=== PATIENT | male | born 1940 | race Caucasian/White ===

== ENCOUNTER → 2016-08-28 | Outpatient (REF) | payer OTHER ==
[~2016-08-28] MED LIST: *GLUCOMETE; /ESOM40CA; /GLYB5TA; /SUCR1TA; /WARF5TA; ALCOHOL TOP; ATEN50TA2; ATEN50TA2 PO; ATENOLOL50 PO; BACTRIMDS PO; CARAFATE1 PO; COLA100C2; DARVOCET-N PO; DIABETA5 PO; DOXYCYC100 PO; DRIS50002 PO; FE T325T PO; FERR325T; FERREX PO; FERROUS325 PO; FINA5TAB2 PO; FOLI1TAB; FOLI1TAB2 PO; GLUC500T; GLUC850T; GLUCCOSEAC TOPICAL; GLUCOPH850 PO; GLUCOPXR5; GLUCOPXR5 PO; GLUCOSE TEST; GLYB1TAB29 PO; GLYBPOW; GLYBURIDE5 PO; HYDR12.55 PO; HYDR25TA6; INSULADS SUBQ; JANU100T PO; LANCMIS; LASI20TA PO; LISI10TA4; LISI10TA4 PO; LISINOPR10 PO; LISINOPR20 PO; METF500T PO; METFORM500 PO; METO10TA2; MONOPRIL10 PO; MOTRIN800 PO; NEXIUM40 PO; NIFEREX; NIFEREX PO; NITR0.4S; PRIL20CA; PRIL40CA; PRIL40CA PO; PRILOSEC40 PO; REGLAN10 PO; SIMV40TA2; SIMV40TA2 PO; TRAV0.006 OU; TRAVOPROST; TRICOR145 PO; UROXATRAL PO; VITA100027; VITA100072 PO; XALATAN; ZOCOR40 PO; [UNRECOGNIZED DRUG - CODE] PO; [UNRECOGNIZED DRUG - OTHER]; travatan OU
[2016-08-28 13:37] LABS: ALBUMIN 2.7 GM/DL (3.2-5.2); ALBUMIN/GLOBULIN RATIO 0.87 (1.00-1.93); ALKALINE PHOSPHATASE 108 U/L (45-117); ALT/SGPT 26 U/L (12-78); ANION GAP 5 MEQ/L (8-16); AST/SGOT 28 U/L (15-37); BILIRUBIN,TOTAL 0.7 MG/DL (0.2-1.0); BLOOD UREA NITROGEN 34 MG/DL (7-18); CARBON DIOXIDE LEVEL 26 MEQ/L (21-32); CHLORIDE LEVEL 113 MEQ/L (98-107); CHOLESTEROL LEVEL 122 MG/DL (<200); CREATININE FOR GFR 1.43 MG/DL (0.70-1.30); GLOMERULAR FILTRATION RATE 51.3 (>42); GLUCOSE, FASTING 127 MG/DL (83-110); POTASSIUM SERUM 4.9 MEQ/L (3.5-5.1); SODIUM LEVEL 144 MEQ/L (136-145); TOTAL PROTEIN 5.8 GM/DL (6.4-8.2); TRIGLYCERIDES LEVEL 81 MG/DL (<150)
[2016-08-28 14:08] LABS: BASO % 0.5 % (0.0-1.0); EOS # 0.1 K/mm3 (0.0-0.50); EOS % 2.7 % (0.0-3.0); LARGE UNSTAINED CELL # 0.1 K/mm3 (0.0-0.4); LARGE UNSTAINED CELL % 1.7 % (0.0-4.0); LYMPH # 0.8 K/mm3 (1.5-4.5); LYMPH % 20.8 % (24.0-44.0); MEAN CORPUSCULAR HEMOGLOBIN 31.5 pg (27.0-33.0); MEAN CORPUSCULAR HGB CONC 31.5 g/dl (32.0-36.5); MONO # 0.3 K/mm3 (0.0-0.8); MONO % 6.3 % (0.0-5.0); NEUTROPHILS # 2.7 K/mm3 (1.8-7.7); RED CELL DISTRIBUTION WIDTH 14.4 % (11.5-14.5)
[2016-08-28 14:14] LABS: ADD MORPHOLOGY? NO; PLATELET COUNT, AUTOMATED 50 k/mm3 (150-450)
[2016-09-01 12:57] LABS: ALBUMIN 2.95 GM/DL (3.29-5.55); ALBUMIN % 50.8 % (55.8-66.1); GAMMA GLOBULIN % 21.1 % (11.1-18.8)
== END ==
LOC: M SFHCPLAZ 11:00
PROVIDERS: ATTEND Family Medicine
DX: E53.8 Deficiency of other specified B group vitamins (principal); I50.30 Unspecified diastolic (congestive) heart failure; E11.9 Type 2 diabetes mellitus without complications; N40.1 Benign prostatic hyperplasia with lower urinary tract symptoms
CPT/HCPCS: 36415; 80053; 80061; 83036; 84165; 85025; G0103

== ENCOUNTER 2016-09-22 03:07 | Emergency (ER) | payer OTHER ==
[~2016-09-22] VITALS: Ht 167.6 cm; Wt 93.0 kg
[2016-09-22] MEDS ORDERED: METF-414 PO (03:25)
--- NOTE | 2016-09-22 05:50 | REPUSA ---
CLINICAL HISTORY: Edema. COMMENTS: Real time sonography with duplex doppler of the left lower extremity was performed with attention to the major deep venous structures. Evaluation reveals the left common femoral, superficial femoral and popliteal veins to be completely compressible without intraluminal thrombus. There is normal spontaneous phasic flow and augmentation. The greater saphenous/common femoral vein junction is patent. IMPRESSION: No evidence of DVT in left lower extremity. Thank you for your kind referral of this patient.
[2016-09-22 06:50] VITALS: BP 152/66
== END 2016-09-22 07:13 | disposition home or self-care (01) ==
LOC: M ED 04:13
DX: M79.652 Pain in left thigh (principal); Z86.718 Personal history of other venous thrombosis and embolism; Z79.899 Other long term (current) drug therapy; Z79.84 Long term (current) use of oral hypoglycemic drugs; Z79.4 Long term (current) use of insulin

== ENCOUNTER 2016-12-04 09:53 | Inpatient (IN) | payer OTHER, MEDICARE ==
[~2016-12-04] VITALS: Ht 167.6 cm; Wt 93.8 kg
[~2016-12-04 09:53] MED LIST changes: -FOLI1TAB2 PO; +FOLI1TAB4 PO; +METF-414 PO; -METF500T PO; +METF500T13 PO
[2016-12-04] MEDS ORDERED: ALPH0.156 OU (10:07)
[2016-12-04 10:47] LABS: DIFF SLIDE NUMBER 169; MEAN CORPUSCULAR HEMOGLOBIN 30.9 pg (27.0-33.0); MEAN CORPUSCULAR HGB CONC 31.6 g/dl (32.0-36.5); MEAN CORPUSCULAR VOLUME 97.7 fl (80.0-96.0); PLATELET COUNT, AUTOMATED 53 k/mm3 (150-450); RED CELL DISTRIBUTION WIDTH 14.3 % (11.5-14.5); WHITE BLOOD COUNT 4.2 K/mm3 (4.0-10.0)
[2016-12-04 10:48] LABS: ADD MANUAL DIFFER NO; ADD MORPHOLOGY? NO; BASO % 0.4 % (0.0-1.0); EOS # 0.1 K/mm3 (0.0-0.50); EOS % 1.6 % (0.0-3.0); LARGE UNSTAINED CELL # 0.1 K/mm3 (0.0-0.4); LARGE UNSTAINED CELL % 1.3 % (0.0-4.0); LYMPH # 0.7 K/mm3 (1.5-4.5); LYMPH % 17.1 % (24.0-44.0); MONO # 0.3 K/mm3 (0.0-0.8); MONO % 6.6 % (0.0-5.0); NEUTROPHILS # 3.1 K/mm3 (1.8-7.7)
[2016-12-04 10:49] LABS: INR 1.2
[2016-12-04 11:29] LABS: ALBUMIN 2.3 GM/DL (3.2-5.2); ALBUMIN/GLOBULIN RATIO 0.64 (1.00-1.93); ALKALINE PHOSPHATASE 159 U/L (45-117); ALT/SGPT 21 U/L (12-78); ANION GAP 6 MEQ/L (8-16); AST/SGOT 22 U/L (15-37); BILIRUBIN,DIRECT 0.2 MG/DL (0.0-0.2); BILIRUBIN,TOTAL 0.7 MG/DL (0.2-1.0); BLOOD UREA NITROGEN 33 MG/DL (7-18); CALCIUM LEVEL 8.4 MG/DL (8.8-10.2); CARBON DIOXIDE LEVEL 29 MEQ/L (21-32); CHLORIDE LEVEL 108 MEQ/L (98-107); CREATININE FOR GFR 1.33 MG/DL (0.70-1.30); GLOMERULAR FILTRATION RATE 55.8 (>42); GLUCOSE, FASTING 142 MG/DL (83-110); SODIUM LEVEL 143 MEQ/L (136-145); TOTAL PROTEIN 5.9 GM/DL (6.4-8.2)
[2016-12-04] MEDS ORDERED: IPRATROPIUM 0.5MG/ALBUTEROL 2.5MG INH SOL UD 3ML (DUONEB)(J7620) NEB ONE (11:30)
--- NOTE | 2016-12-04 12:05 | REP ---
PORTABLE CHEST: AP portable view of the chest is performed and compared to prior studies, most recent of which is 07/07/2015. There is cardiomegaly. Chronic fibrotic changes are seen in each lung base with no acute infiltrate. There is calcification of the thoracic aorta. The mediastinal silhouette is unchanged. Multiple sternal wires and mediastinal clips are present. IMPRESSION: Cardiomegaly. Stable chronic fibrotic changes with no evidence of acute infiltrate. Signed by Brooks Marie MD 12/04/2016 05:55 P
[2016-12-04] MEDS ORDERED: SIMV40TA2 PO (12:53)
[2016-12-04] MEDS ORDERED: TRAV04OPD OU (12:53)
[2016-12-04] MEDS ORDERED: INSULANT SC (12:53)
[2016-12-04] MEDS ORDERED: OMEP40CA2 PO (12:53)
--- NOTE | 2016-12-04 13:00 | REP ---
Bilateral lower extremity Duplex Doppler venous ultrasound: Real time compression and duplex Doppler interrogation of the bilateral lower extremity deep venous system is performed. Bilaterally, the common femoral, superficial femoral and popliteal veins are fully compressible with transducer pressure and demonstrate normal spontaneous and phasic flow, without evidence of deep venous thrombosis. Impression: No evidence of deep venous thrombosis of the bilateral lower extremity femoral popliteal venous system. Signed by Brooks Marie MD 12/04/2016 12:52 P
--- NOTE | 2016-12-04 14:34 | REP ---
CT of the abdomen and pelvis without IV or bowel contrast: Comparison is 02/16/2014. Within the visualized lower lung xavier. There are small bilateral pleural effusions. There is abdominal ascites surrounding the liver and spleen extending inferiorly in the colic gutters bilaterally into the pelvis. The there is a nodular hepatic margin compatible with cirrhosis. This is unchanged. There are surgical clips in the gallbladder fossa, unchanged. The pancreas is unremarkable and unchanged. The spleen is enlarged measuring 15 centimeters cranial caudad. This appears unchanged. The adrenals, kidneys and abdominal aorta are unremarkable. There is no bowel distension or obstruction. Pelvis: The bladder is incompletely distended and cannot be further evaluated. There is ascites. There is no adenopathy. No diverticulosis or diverticulitis. No inflammatory changes or mass. There is degenerative disc disease throughout the lumbar spine. There is a right hip arthroplasty. 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 Impression: Abdominal ascites. Splenomegaly. Findings in the liver compatible with cirrhosis. Cholecystectomy. No bowel distension or obstruction. Small bilateral pleural effusions. Left hip arthroplasty. Signed by Brooks Goss MD 12/04/2016 02:26 P
--- NOTE | 2016-12-04 15:14 | HPEPDOC ---
Medical History and Physical Date of Admission 12/04/16 History and Physical PRIMARY CARE PROVIDER: Dr. Donavan Reynolds ATTENDING: Dr. 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 Patient states she's been having dyspnea on exertion over the past 2-3 days. Also states he's has progressive orthopnea as well as productive cough of green sputum. No chest pain/palpitations. Patient also notices abdominal distention has been progressively getting worse over the past month, as well as increased lower extremity edema. States he was never told that he would need to be on a liver transplant list, and does not follow regularly with a installation technician. PAST MEDICAL HISTORY:As per HPI PAST SURGICAL HISTORY: History of alcohol abuse however quit drinking 3-4 years ago. No tobacco or illicit drug use. SOCIAL HISTORY: H/o alcohol abuse. FAMILY HISTORY: No family history of liver disease. Father with Heart disease. ALLERGIES: Please see below. REVIEW OF SYSTEMS: HEENT: Denies sore throat/headache CARDIOVASCULAR: Denies chest pain/palpitations RESPIRATORY: + shortness of breath/cough GASTROINTESTINAL: denies nausea/vomiting GENITOURINARY: Denies dysuria/urinary urgency. MUSCULOSKELETAL: Denies myalgias/arthralgias NEUROLOGICAL: Denies any focal weakness HOME MEDICATIONS: Please see below. PHYSICAL EXAMINATION: Vitals: (see below) General: No acute distress, laying comfortably in bed. HEENT: Moist mucous membranes. Neck: Mild JVD. No lymphadenopathy Cardiac: RRR, No murmurs Pulm: Coarse crackles bilateral bases. No wheezing, rhonchi. Abd: Abdominal distention and tenderness to palpation with deep palpation. No rebound guarding or rigidity. + BS Ext: 1+ pitting edema bilateral lower extremities. No cyanosis. Distal pulses intact. LABORATORY DATA: See below. IMAGING: CT abd/pelvis 12/04/16 Impression: Abdominal ascites. Splenomegaly. Findings in the liver compatible with cirrhosis. Cholecystectomy. No bowel distension or obstruction. Small bilateral pleural effusions. Left hip arthroplasty. BLE U/S 12/04/16 Impression: No evidence of deep venous thrombosis of the bilateral lower extremity femoral popliteal venous system. CXR 12/04/16 IMPRESSION: Cardiomegaly. Stable chronic fibrotic changes with no evidence of acute infiltrate. MICROBIOLOGY: Please see below. ASSESSMENT/PLAN: 1. Decompensated cirrhosis- no prior hospitalizations for decompensated cirrhosis. He is taking Lasix at home. Has not been following up regularly with a installation technician. Will be placed on Lasix every 4 hours. We'll start spironolactone as well. Paracentesis ordered for tomorrow. Will need gastroenterology follow-up outpatient as well as follow for possible transplant list candidate. 2. Acute diastolic heart failure- likely secondary to the above. We will continue with diuresis. Echo cardio pending and cardiac enzymes ordered. 3. Chronic anemia and thrombocytopenia- likely secondary to the above. Stable. No acute bleeding. No need for transfusion at this time. We will continue to monitor. 4. Chronic kidney disease stage III Baseline creatinine 1.4. Stable. Avoid nephrotoxins. 5. History of DVT/PE/atrial fibrillation- rate controlled. Not on anticoagulation secondary to recurrent GI bleeding. 6. History of hypertension- continue home meds 7. History of CAD- continue home meds 8. History of BPH- continue meds 9. Hyperlipidemia- continue statin 10. Diabetes mellitus - we will hold metformin for now. Continue Levemir. Sliding scale insulin. DVT prophylaxis- heparin subcutaneous Prognosis is guarded. Patient will be signed out to Dr. Mark Anthony martin and will be followed by the family medicine team. Vital Signs Vital Signs Date Time Temp Pulse Resp B/P (MAP) Pulse Ox O2 Delivery O2 Flow Rate FiO2 12/04/16 12:08 86 12/04/16 12:00 146/74 (98) 12/04/16 11:53 99 12/04/16 09:53 97.2 22 Room Air Laboratory Data Labs 24H Laboratory Tests 2 12/04/16 10:26: White Blood Count 4.2, Red Blood Count 3.44L, Hemoglobin 10.6L, Hematocrit 33.6L , Mean Corpuscular Volume 97.7H, Mean Corpuscular Hemoglobin 30.9, Mean Corpuscular Hemoglobin Concent 31.6L, Red Cell Distribution Width 14.3, Platelet Count 53L, Neutrophils (%) (Auto) 73.0H, Lymphocytes (%) (Auto) 17.1L, Monocytes (%) (Auto) 6.6H, Eosinophils (%) (Auto) 1.6, Basophils (%) (Auto) 0.4 , Neutrophils # (Auto) 3.1, Lymphocytes # (Auto) 0.7L, Monocytes # (Auto) 0.3, Eosinophils # (Auto) 0.1, Basophils # (Auto) 0.0, Large Unclassified Cells % 1.3 , Large Unclassified Cells # 0.1, Prothrombin Time 15.4H, Prothromb Time International Ratio 1.20, Anion Gap 6L, Glomerular Filtration Rate 55.8, Calcium Level 8.4L, Aspartate Amino Transf (AST/SGOT) 22, Alanine Aminotransferase (ALT/SGPT) 21, Alkaline Phosphatase 159H, Total Bilirubin 0.7, Direct Bilirubin 0.2, Total Creatine Kinase 55, Creatine Kinase MB 1.3, Creatine Kinase MB Relative Index 2.36, Troponin I < 0.02, B-Type Natriuretic Peptide 171H, Total Protein 5.9L, Albumin 2.3L, Albumin/Globulin Ratio 0.64L, Thyroid Stimulating Hormone (TSH) 2.150 12/04/16 10:35: Lactic Acid Level 1.3 CBC/BMP Laboratory Tests 12/04/16 10:26 Red Blood Count 3.44 L, Mean Corpuscular Volume 97.7 H, Mean Corpuscular Hemoglobin 30.9, Mean Corpuscular Hemoglobin Concent 31.6 L, Red Cell Distribution Width 14.3, Neutrophils (%) (Auto) 73.0 H, Lymphocytes (%) (Auto) 17.1 L, Monocytes (%) (Auto) 6.6 H, Eosinophils (%) (Auto) 1.6, Basophils (%) ( Auto) 0.4, Neutrophils # (Auto) 3.1, Lymphocytes # (Auto) 0.7 L, Monocytes # ( Auto) 0.3, Eosinophils # (Auto) 0.1, Basophils # (Auto) 0.0 Microbiology Microbiology 12/04/16 Blood Culture, Received Pending 12/04/16 Blood Culture, Received Pending Home Medications Scheduled Brimonidine Tartrate 0.15% (Alphagan P) 0.15 % Vivi, 1 DROP OU DAILY Cyanocobalamin (Vitamin B12) 1,000 Mcg Tab, 1,000 MCG PO DAILY Ferrous Sulfate (Fe Tabs) 325 Mg Tab, 325 MG PO BID Finasteride (Finasteride) 5 Mg Tab, 5 MG PO DAILY Folic Acid (Folic Acid) 1 Mg Tab, 1 MG PO DAILY Furosemide (Lasix) 20 Mg Tab, 20 MG PO DAILY Insulin Glargine (Lantus) 1 Units/0.01 Ml Susp, 40 UNITS SC QHS Lisinopril (Lisinopril) 10 Mg Tab, 10 MG PO DAILY Metformin Hydrochloride (Metformin HCl ER) 500 Mg Tab, 500 MG PO DAILY Nadolol (Nadolol) 20 Mg Tab, 20 MG PO DAILY@1800 Omeprazole (Omeprazole) 40 Mg Cap, 40 MG PO BID Simvastatin - High Dose (Simvastatin) 40 Mg Tab, 40 MG PO QHS Spironolactone (Aldactone) 50 Mg Tab, 50 MG PO DAILY Travoprost (Travatan Z) 50 Drop/2.5 Ml Soln, 1 DROP OU QHS Vitamin D (Drisdol) 50,000 Unit Cap, 50,000 UNIT PO Q2WK EVERY OTHER THURSDAY Allergies Coded Allergies: No Known Drug Allergy (Verified Allergy, Unknown, 08/16/12) LUZMA DELA CRUZ MD Dec 04, 2016 15:14
[2016-12-04] MEDS ORDERED: FUROSEMIDE 40 MG/4 ML VIAL (J1940) IV ONE (15:15)
--- NOTE | 2016-12-04 16:15 | REP ---
Radionuclide pulmonary ventilation and perfusion scan: Comparisons are the plain film portable chest performed earlier today and chest CT dated 07/07/2015. The study is performed after administration of 1 mCi of technetium 99 labeled DTPA aerosol followed by 5.4 mCi of technetium 99 labeled MAA intravenously. There are no perfusion defects. There are no ventilation defects. There is precipitation radiotracer ventilation phase within the central airways, compatible with COPD. Impression: Low probability of pulmonary embolus. There are findings compatible with COPD. Signed by Brooks Goss MD 12/04/2016 04:06 P
[2016-12-04] MEDS ORDERED: GLUCOSE 4 GM CHEW TABLET PO PRN (18:15)
[2016-12-04] MEDS ORDERED: GLUCAGON FOR INJ 1 MG VIAL (J1610) SC PRN (18:15)
[2016-12-04] MEDS ORDERED: DEXTROSE 50% 50 ML SYRINGE IV PRN (18:15)
[2016-12-04 18:50] VITALS: BP 117/63
--- NOTE | 2016-12-04 19:10 | ECGEPIP ---
Stationary ECG Study [facility] - ED Test Date: 2016-12-04 Pat Name: RACHAEL MOODY Department: Room: - Gender: M Medical Terminologist: olivier : 1940 Requested By: Connie Bryant Order Number: [id number] Reading MD: Mitesh Kerns Measurements Intervals [place] Rate: 68 P: CO: 0 QRS: 5 QRSD: 94 T: 30 QT: 398 QTc: 426 Interpretive Statements ATRIAL FIBRILLATION NONSPECIFIC T-WAVE ABNORMALITY RHYTHM CHANGE COMPARED TO 09/07/13 Electronically Signed On 12-04-2016 19:10:16 EDT by Mitesh Kerns
[2016-12-04 19:48] VITALS: BP 121/58
[2016-12-04] MEDS: LEVEMIR (INSULIN DETEMIR) 1 UNITS/0.01ML SC SCH (21:00)
[2016-12-04] MEDS: HumaLOG INSULIN (NovoLOG) PER UNIT SC SCH (21:00)
[2016-12-04] MEDS: SPIRONOLACTONE 25 MG TAB PO SCH (21:00)
[2016-12-04 21:57] VITALS: BP 106/60
[2016-12-04] MEDS ORDERED: HEPARIN SOD (PORCINE) 5000 UNITS/ML VIAL SC SCH (22:00)
[2016-12-04] MEDS: FUROSEMIDE 40 MG/4 ML VIAL (J1940) IV SCH (22:00)
[2016-12-04] MEDS: SIMVASTATIN 40 MG TAB PO SCH (22:01)
[2016-12-04] MEDS: LATANOPROST 0.005% OPHTH SOLN 2.5 ML OU SCH (22:01)
[2016-12-04] MEDS: OMEPRAZOLE 20 MG CAP PO SCH (22:02)
[2016-12-04 23:36] VITALS: BP 118/56
[2016-12-05] MEDS: FUROSEMIDE 40 MG/4 ML VIAL (J1940) IV SCH ×4 (00:19→12:07)
[2016-12-05 03:55] VITALS: BP 127/60
[2016-12-05 05:21] LABS: MEAN CORPUSCULAR HGB CONC 32.3 g/dl (32.0-36.5); MEAN CORPUSCULAR VOLUME 99.1 fl (80.0-96.0); RED CELL DISTRIBUTION WIDTH 14.1 % (11.5-14.5); WHITE BLOOD COUNT 4.2 K/mm3 (4.0-10.0)
[2016-12-05 05:22] LABS: ALBUMIN 2.1 GM/DL (3.2-5.2); ALBUMIN/GLOBULIN RATIO 0.68 (1.00-1.93); BILIRUBIN,TOTAL 0.7 MG/DL (0.2-1.0); CALCIUM LEVEL 8.2 MG/DL (8.8-10.2); CREATININE FOR GFR 1.67 MG/DL (0.70-1.30); GLOMERULAR FILTRATION RATE 42.9 (>42); MAGNESIUM LEVEL 1.8 MG/DL (1.8-2.4); POTASSIUM SERUM 4.9 MEQ/L (3.5-5.1); TOTAL PROTEIN 5.2 GM/DL (6.4-8.2)
[2016-12-05 08:00] VITALS: BP 153/72
[2016-12-05] MEDS: HumaLOG INSULIN (NovoLOG) PER UNIT SC SCH ×4 (08:49→21:00)
[2016-12-05] MEDS: OMEPRAZOLE 20 MG CAP PO SCH ×2 (08:50→21:38)
[2016-12-05] MEDS: SPIRONOLACTONE 25 MG TAB PO SCH (08:51)
[2016-12-05] MEDS: FINASTERIDE 5 MG TAB PO SCH (08:51)
[2016-12-05] MEDS: CYANOCOBALAMIN 500 MCG TAB PO SCH (08:52)
[2016-12-05] MEDS: FOLIC ACID 1 MG TAB PO SCH (08:52)
[2016-12-05] MEDS: BRIMONIDINE 0.15% OPHTH SOLN 5 ML OU SCH (08:52)
[2016-12-05] MEDS ORDERED: LISINOPRIL 10 MG TAB PO SCH (09:00)
[2016-12-05] MEDS ORDERED: ATENOLOL 50 MG TAB PO SCH (09:00)
[2016-12-05 12:00] VITALS: BP 96/53
--- NOTE | 2016-12-05 14:02 | IPNPDOC ---
Subjective Date Seen The patient was seen on 12/05/16. Subjective Chief Complaint/HPI The patient is a 76-year-old male admitted with a reason for visit of Decompensated Hepatic Cirrhosis. Constitutional: Denies: Fever, Night Sweats Eyes: Denies: Pain ENT: Denies: Head Aches, Dysphagia Skin: Denies: Rash Pulmonary: Denies: Dyspnea, Cough, Pleuritic Chest Pain Cardiovascular: Denies: Chest Pain, Palpitations, Orthopnea Gastrointestinal: Reports: Abdominal Pain (diffuse, non-localizing), Denies: Vomiting Genitourinary: Denies: Dysuria, Frequency Hematologic: Denies: Bruising Endocrine: Denies: Polydipsia, Polyphagia Psych: Reports: Mood Normal Objective Physical Examination General Exam: Positive: Alert, Cooperative Eye Exam: Positive: PERRLA, EOMI, Negative: Sclera icteric Neck Exam: Positive: Supple, Negative: thyromegaly Chest Exam: Positive: Clear to auscultation, Normal air movement, Negative: Rales, Rhonchi, Wheezing Heart Exam: Positive: Rate Normal, Regular Rhythm, Negative: Murmurs Telemetry: Positive: No significant arrhythmia Abdomen Exam: Positive: BS Hypoactive, Tenderness (diffusely tender. abdomen tense. no mass) Skin Exam: Negative: Rash, Breakdown Psych Exam: Positive: Mental status NL Assessment /Plan Problems (1) Ascites Status: Chronic Response to Treatment: Worse Problem Text: due to cirrhosis of liver, thought to be due to alcoholic liver disease and fatty liver.increase in ascites, tender abdomen. on for diagnostic and therapeutic paracentesis today. 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 (2) Diastolic CHF Status: Chronic Response to Treatment: Stable Problem Specific Plan: Monitor Clinically Problem Text: will increase terminal press operator diuretic use from 20 to 40 lasix. stop IV dosing for now. (3) Diabetes mellitus type 2 in obese Status: Chronic Response to Treatment: Stable Problem Specific Plan: Monitor Clinically, Repeat Tests (4) MGUS (monoclonal gammopathy of unknown significance) Status: Chronic Response to Treatment: Stable Problem Specific Plan: Monitor Clinically (5) BPH loc w urin obs/LUTS Status: Acute Response to Treatment: Stable Problem Specific Plan: Monitor Clinically Plan/VTE VTE Prophylaxis Ordered?: Yes Plan Diet: Continue Current (if peritonitis is identified, antibiotic course will be needed. will decide about antibiotic depending on cell count and culture) VS, I&O, 24H, Fishbone Vital Signs/I&O Vital Signs Date Time Temp Pulse Resp B/P (MAP) Pulse Ox O2 Delivery O2 Flow Rate FiO2 12/05/16 09:04 Nasal Cannula 2.0 12/05/16 08:50 153/72 12/05/16 08:50 94 12/05/16 08:00 98.6 18 99 I&O- Last 24 Hours up to 6 AM 12/05/16 06:00 Intake Total 385 ml Output Total 275 ml Balance 110 ml Laboratory Data 24H LABS Laboratory Tests 2 12/04/16 21:03: Bedside Glucose (Misc Panel) 171H 12/05/16 04:47: Anion Gap 6L, Glomerular Filtration Rate 42.9, Blood Urea Nitrogen 33H, Creatinine 1.67H, Sodium Level 145, Potassium Level 4.9#, Chloride Level 108H, Carbon Dioxide Level 31, Calcium Level 8.2L, Aspartate Amino Transf (AST/SGOT) 22, Alanine Aminotransferase (ALT/SGPT) 17, Alkaline Phosphatase 139H, Total Bilirubin 0.7, Total Protein 5.2L, Albumin 2.1L, Magnesium Level 1.8, Albumin/ Globulin Ratio 0.68L 12/05/16 11:21: Bedside Glucose (Misc Panel) 156H CBC/BMP Laboratory Tests 12/05/16 04:47 Red Blood Count 3.08 L, Mean Corpuscular Volume 99.1 H, Mean Corpuscular Hemoglobin 32.0, Mean Corpuscular Hemoglobin Concent 32.3, Red Cell Distribution Width 14.1, Calcium Level 8.2 L, Aspartate Amino Transf (AST/SGOT) 22, Alanine Aminotransferase (ALT/SGPT) 17, Alkaline Phosphatase 139 H, Total Bilirubin 0.7, Total Protein 5.2 L, Albumin 2.1 L Microbiology Microbiology 12/04/16 Blood Culture - Preliminary, Resulted No growth after 24 hours . All specim... 12/04/16 Blood Culture - Preliminary, Resulted No growth after 24 hours . All specim... Hill Hopson MD Dec 05, 2016 14:02
[2016-12-05 15:23] LABS: SPEC. GRAVITY BODY FLUIDS 1.014 (NOT ESTABLISHED)
[2016-12-05 15:31] LABS: RBC ASCITES FLUID 30 (<10mm3 cells/uL); TNC ASCITES FLUID 443 cells/uL (0-20)
[2016-12-05 15:34] LABS: BF DIFF IF INDICATED? YES (NO)
[2016-12-05 15:35] LABS: TOTAL PROTEIN, BODY FLUID 1.3 G/DL (NOT ESTABLISHED)
[2016-12-05 16:00] VITALS: BP 100/54
[2016-12-05 16:13] LABS: CC BF DIFF EXAM CYTOCENTRIFUGE
[2016-12-05 20:00] VITALS: BP 119/57
[2016-12-05] MEDS: LEVEMIR (INSULIN DETEMIR) 1 UNITS/0.01ML SC SCH (21:00)
[2016-12-05] MEDS: SIMVASTATIN 40 MG TAB PO SCH (21:39)
[2016-12-05] MEDS: LATANOPROST 0.005% OPHTH SOLN 2.5 ML OU SCH (21:40)
[2016-12-06] VITALS (7 sets, daily range): BP systolic 74–116; BP diastolic 46–57
[2016-12-06 05:27] LABS: MEAN CORPUSCULAR HEMOGLOBIN 31.3 pg (27.0-33.0); MEAN CORPUSCULAR HGB CONC 32.3 g/dl (32.0-36.5); MEAN CORPUSCULAR VOLUME 96.7 fl (80.0-96.0); WHITE BLOOD COUNT 3.8 K/mm3 (4.0-10.0)
[2016-12-06 05:38] LABS: ALBUMIN/GLOBULIN RATIO 0.67 (1.00-1.93); BILIRUBIN,TOTAL 0.5 MG/DL (0.2-1.0); CALCIUM LEVEL 7.8 MG/DL (8.8-10.2); CREATININE FOR GFR 1.91 MG/DL (0.70-1.30); GLOMERULAR FILTRATION RATE 36.8 (>42); POTASSIUM SERUM 4.6 MEQ/L (3.5-5.1)
[2016-12-06] MEDS: CYANOCOBALAMIN 500 MCG TAB PO SCH (08:34)
[2016-12-06] MEDS: HumaLOG INSULIN (NovoLOG) PER UNIT SC SCH ×4 (08:34→21:00)
[2016-12-06] MEDS: FOLIC ACID 1 MG TAB PO SCH (08:35)
[2016-12-06] MEDS: SPIRONOLACTONE 25 MG TAB PO SCH (08:35)
[2016-12-06] MEDS: FINASTERIDE 5 MG TAB PO SCH (08:35)
[2016-12-06] MEDS: OMEPRAZOLE 20 MG CAP PO SCH ×2 (08:35→21:39)
[2016-12-06] MEDS: BRIMONIDINE 0.15% OPHTH SOLN 5 ML OU SCH (08:35)
[2016-12-06] MEDS ORDERED: FUROSEMIDE 40 MG TAB PO SCH (09:00)
[2016-12-06] MEDS ORDERED: NADOLOL 20MG TABLET PO SCH (09:00)
[2016-12-06] MEDS ORDERED: LISINOPRIL 5 MG TAB PO SCH (09:00)
--- NOTE | 2016-12-06 10:33 | REP ---
REASON: Ascites. Four ultrasonographic images of the abdomen were obtained to assess depth of needle placement to drain ascites. Signed by Mike Norton DO 12/06/2016 10:38 A
[2016-12-06] MEDS: LEVEMIR (INSULIN DETEMIR) 1 UNITS/0.01ML SC SCH (21:00)
[2016-12-06] MEDS: LATANOPROST 0.005% OPHTH SOLN 2.5 ML OU SCH (21:38)
[2016-12-06] MEDS: SIMVASTATIN 40 MG TAB PO SCH (21:39)
[2016-12-07] VITALS (7 sets, daily range): BP systolic 114–148; BP diastolic 57–69
--- NOTE | 2016-12-07 03:26 | IPNPDOC ---
Subjective Date Seen The patient was seen on 12/06/16. Subjective Chief Complaint/HPI The patient is a 76-year-old male admitted with a reason for visit of Decompensated Hepatic Cirrhosis. Events since last encounter Patient had a couple low blood pressures this afternoon. Otherwise feeling pretty well, and hoping to go home soon. Constitutional: Denies: Chills, Fever Skin: Denies: Rash Pulmonary: Denies: Dyspnea, Cough Cardiovascular: Denies: Chest Pain, Palpitations Gastrointestinal: Denies: Nausea, Vomiting, Diarrhea, Constipation Genitourinary: Denies: Dysuria, Frequency Objective Physical Examination General Exam: Positive: Alert, Cooperative Eye Exam: Positive: PERRLA, EOMI, Negative: Sclera icteric Neck Exam: Positive: Supple, Negative: thyromegaly Chest Exam: Positive: Clear to auscultation, Normal air movement, Negative: Rales, Rhonchi, Wheezing Heart Exam: Positive: Rate Normal, Regular Rhythm, Negative: Murmurs Telemetry: Positive: No significant arrhythmia Abdomen Exam: Positive: BS Hypoactive, Tenderness (diffusely tender. abdomen tense. no mass) Skin Exam: Negative: Rash, Breakdown Psych Exam: Positive: Mental status NL Assessment /Plan Problems (1) Ascites Status: Chronic Response to Treatment: Worse Problem Text: 12/06 -- monitor for signs of SBP. Symptomatically much improved after paracentesis. due to cirrhosis of liver, thought to be due to alcoholic liver disease and fatty liver.increase in ascites, tender abdomen. on for diagnostic and therapeutic paracentesis today. 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 (2) Diastolic CHF Status: Chronic Response to Treatment: Stable Problem Specific Plan: Monitor Clinically Problem Text: 12/06 -- Discussed fluid restriction and diuretics. Patient was on target for a net negative today. will increase penitentiary diuretic use from 20 to 40 lasix. stop IV dosing for now. (3) Diabetes mellitus type 2 in obese Status: Chronic Response to Treatment: Stable Problem Specific Plan: Monitor Clinically, Repeat Tests (4) MGUS (monoclonal gammopathy of unknown significance) Status: Chronic Response to Treatment: Stable Problem Specific Plan: Monitor Clinically (5) BPH loc w urin obs/LUTS Status: Acute Response to Treatment: Stable Problem Specific Plan: Monitor Clinically Plan/VTE VTE Prophylaxis Ordered?: Yes Plan Diet: Continue Current (if peritonitis is identified, antibiotic course will be needed. will decide about antibiotic depending on cell count and culture) VS, I&O, 24H, Fishbone Vital Signs/I&O Vital Signs Date Time Temp Pulse Resp B/P (MAP) Pulse Ox O2 Delivery O2 Flow Rate FiO2 12/07/16 00:00 98.2 58 22 118/60 (79) 95 Room Air 12/06/16 04:30 1.0 I&O- Last 24 Hours up to 6 AM 12/07/16 06:00 Intake Total 680 ml Output Total 125 ml Balance 555 ml Laboratory Data 24H LABS Laboratory Tests 2 12/06/16 05:08: Anion Gap 6L, Glomerular Filtration Rate 36.8L, Blood Urea Nitrogen 47H, Creatinine 1.91H, Sodium Level 143, Potassium Level 4.6, Chloride Level 107, Carbon Dioxide Level 30, Calcium Level 7.8L, Aspartate Amino Transf (AST/SGOT) 20, Alanine Aminotransferase (ALT/SGPT) 15, Alkaline Phosphatase 125H, Total Bilirubin 0.5, Total Protein 5.0L, Albumin 2.0L, Magnesium Level 2.0, Albumin/ Globulin Ratio 0.67L 12/06/16 12:13: Bedside Glucose (Misc Panel) 219H 12/06/16 17:19: Bedside Glucose (Misc Panel) 107 12/06/16 21:34: Bedside Glucose (Misc Panel) 239H CBC/BMP Laboratory Tests 12/06/16 05:08 Red Blood Count 2.92 L, Mean Corpuscular Volume 96.7 H, Mean Corpuscular Hemoglobin 31.3, Mean Corpuscular Hemoglobin Concent 32.3, Red Cell Distribution Width 14.0, Calcium Level 7.8 L, Aspartate Amino Transf (AST/SGOT) 20, Alanine Aminotransferase (ALT/SGPT) 15, Alkaline Phosphatase 125 H, Total Bilirubin 0.5, Total Protein 5.0 L, Albumin 2.0 L Microbiology Microbiology 12/04/16 Blood Culture - Preliminary, Resulted No Growth after 48 hours. All Specime... 12/04/16 Blood Culture - Preliminary, Resulted No Growth after 48 hours. All Specime... 12/05/16 Gram Stain - Final, Resulted 7/28/17 Body Fluid Culture, Resulted Pending IVET ESTRADA DO Dec 07, 2016 03:26
[2016-12-07 05:38] LABS: MEAN CORPUSCULAR HEMOGLOBIN 31.1 pg (27.0-33.0); MEAN CORPUSCULAR HGB CONC 32.2 g/dl (32.0-36.5); MEAN CORPUSCULAR VOLUME 96.4 fl (80.0-96.0); RED CELL DISTRIBUTION WIDTH 14.1 % (11.5-14.5)
[2016-12-07 05:54] LABS: ALBUMIN 2.1 GM/DL (3.2-5.2); ALBUMIN/GLOBULIN RATIO 0.66 (1.00-1.93); BILIRUBIN,TOTAL 0.6 MG/DL (0.2-1.0); CALCIUM LEVEL 8.3 MG/DL (8.8-10.2); CREATININE FOR GFR 1.81 MG/DL (0.70-1.30); GLOMERULAR FILTRATION RATE 39.1 (>42); MAGNESIUM LEVEL 2.2 MG/DL (1.8-2.4); POTASSIUM SERUM 5.1 MEQ/L (3.5-5.1); TOTAL PROTEIN 5.3 GM/DL (6.4-8.2)
[2016-12-07] MEDS: BRIMONIDINE 0.15% OPHTH SOLN 5 ML OU SCH (08:40)
[2016-12-07] MEDS: FOLIC ACID 1 MG TAB PO SCH (08:41)
[2016-12-07] MEDS: FINASTERIDE 5 MG TAB PO SCH (08:41)
[2016-12-07] MEDS: OMEPRAZOLE 20 MG CAP PO SCH ×2 (08:41→21:17)
[2016-12-07] MEDS: HumaLOG INSULIN (NovoLOG) PER UNIT SC SCH ×4 (08:41→20:55)
[2016-12-07] MEDS: CYANOCOBALAMIN 500 MCG TAB PO SCH (08:41)
[2016-12-07] MEDS: FUROSEMIDE 20 MG TAB PO SCH (08:41)
[2016-12-07] MEDS: SPIRONOLACTONE 50 MG TAB PO SCH (08:41)
[2016-12-07] MEDS ORDERED: LISINOPRIL *2.5 MG* TAB PO SCH (09:00)
--- NOTE | 2016-12-07 09:46 | ECHO ---
DATE OF PROCEDURE: 12/05/2016 DATE OF : 1940 AGE: 76 REFERRING PROVIDER: Dr. Yasir Harrison PATIENT LOCATION: Room 3217 REASON FOR THE ECHOCARDIOGRAM: Heart failure, unspecified. 2D MEASUREMENTS: IVS: 1.4 cm LV: 4.5 cm LVPW: 1.2 cm LA: 3.9 cm Aorta: 3.7 cm DOPPLER MEASUREMENTS: Peak velocity across the aortic valve: 1.8 m/s Peak velocity across the LVOT: 0.84 m/s Mitral E: 1.3, Mitral A: 0.46 with a ratio of 2.9 2D COMMENTS: 1. Mildly increased left ventricular wall thickness with normal left ventricular size and a normal global left ventricular systolic function. The estimated global left ventricular systolic ejection fraction is 60-65%. 2. Normal left atrium and normal right atrium and right ventricle. 3. The atrial septum appeared to be normal without evidence of defect or shunt. 4. Borderline enlarged aortic root. 5. No pericardial effusion seen. 6. Minimally calcified aortic valve with normal leaflet excursion. Mildly calcified mitral annulus with normal anterior mitral valve leaflet motion. Normal tricuspid valve and pulmonic valve. The proximal pulmonary artery branches appear to be normal in size. 6. The inferior vena cava was mildly enlarged, central venous pressure might be elevated. DOPPLER: It detects trace aortic regurgitation, trace mitral regurgitation and trace to mild tricuspid regurgitation. Assessment of the left ventricular diastolic function appeared to be normal. IMPRESSION: 1. Normal global left ventricular systolic function with mild concentric left ventricular hypertrophy. Left ventricular diastolic function also appears to be normal. 2. Aortic valve sclerosis with trace aortic regurgitation. 3. Mitral annulus calcification with trace mitral regurgitation. 4. Trace to mild tricuspid regurgitation. 5. The inferior vena cava appeared to be enlarged, central venous pressure might be elevated. MTDD
[2016-12-07] MEDS ORDERED: NADOLOL 20MG TABLET PO SCH (18:00)
[2016-12-07] MEDS: LEVEMIR (INSULIN DETEMIR) 1 UNITS/0.01ML SC SCH (21:17)
[2016-12-07] MEDS: LATANOPROST 0.005% OPHTH SOLN 2.5 ML OU SCH (21:18)
[2016-12-07] MEDS: SIMVASTATIN 40 MG TAB PO SCH (21:18)
--- NOTE | 2016-12-07 21:36 | IPNPDOC ---
Subjective Date Seen The patient was seen on 12/07/16. Subjective Chief Complaint/HPI The patient is a 76-year-old male admitted with a reason for visit of Decompensated Hepatic Cirrhosis. Events since last encounter Results of echocardiogram are available. Patient is feeling better, with improved blood pressures. Constitutional: Denies: Chills, Fever Skin: Denies: Rash Pulmonary: Denies: Dyspnea, Cough Cardiovascular: Reports: Edema, Denies: Chest Pain, Orthopnea Gastrointestinal: Denies: Nausea, Vomiting, Diarrhea, Constipation Psych: Reports: Mood Normal Objective Physical Examination General Exam: Positive: Alert, Cooperative Eye Exam: Positive: PERRLA, EOMI, Negative: Sclera icteric Neck Exam: Positive: Supple, Negative: thyromegaly Chest Exam: Positive: Clear to auscultation, Normal air movement, Negative: Rales, Rhonchi, Wheezing Heart Exam: Positive: Rate Normal, Regular Rhythm, Negative: Murmurs Telemetry: Positive: No significant arrhythmia Abdomen Exam: Positive: BS Hypoactive, Negative: Tenderness Skin Exam: Negative: Rash, Breakdown Psych Exam: Positive: Mental status NL Assessment /Plan Problems (1) Ascites Status: Chronic Response to Treatment: Worse Problem Text: 12/07 -- with new adjustments to medication to prevent future ascites, BP is more stable. Ascitic culture is negative. 12/06 -- monitor for signs of SBP. Symptomatically much improved after paracentesis. due to cirrhosis of liver, thought to be due to alcoholic liver disease and fatty liver.increase in ascites, tender abdomen. on for diagnostic and therapeutic paracentesis today. 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 (2) Diastolic CHF Status: Resolved Response to Treatment: Stable Problem Specific Plan: Monitor Clinically Problem Text: 12/07 -- echo not consistent with CHF. Stopped fluid restriction. 12/06 -- Discussed fluid restriction and diuretics. Patient was on target for a net negative today. will increase usp diuretic use from 20 to 40 lasix. stop IV dosing for now. (3) Diabetes mellitus type 2 in obese Status: Chronic Response to Treatment: Stable Problem Specific Plan: Monitor Clinically, Repeat Tests (4) MGUS (monoclonal gammopathy of unknown significance) Status: Chronic Response to Treatment: Stable Problem Specific Plan: Monitor Clinically (5) BPH loc w urin obs/LUTS Status: Acute Response to Treatment: Stable Problem Specific Plan: Monitor Clinically Plan/VTE VTE Prophylaxis Ordered?: Yes Plan Diet: Continue Current (if peritonitis is identified, antibiotic course will be needed. will decide about antibiotic depending on cell count and culture) VS, I&O, 24H, Fishbone Vital Signs/I&O Vital Signs Date Time Temp Pulse Resp B/P (MAP) Pulse Ox O2 Delivery O2 Flow Rate FiO2 12/07/16 17:59 75 130/61 12/07/16 16:30 Room Air 12/07/16 16:09 97.4 20 98 12/06/16 04:30 1.0 I&O- Last 24 Hours up to 6 AM 12/07/16 06:00 Intake Total 755 ml Output Total 425 ml Balance 330 ml Laboratory Data 24H LABS Laboratory Tests 2 12/06/16 21:34: Bedside Glucose (Misc Panel) 239H 12/07/16 05:07: Anion Gap 6L, Glomerular Filtration Rate 39.1L, Blood Urea Nitrogen 51H, Creatinine 1.81H, Sodium Level 146H, Potassium Level 5.1, Chloride Level 109H, Carbon Dioxide Level 31, Calcium Level 8.3L, Aspartate Amino Transf (AST/SGOT) 21, Alanine Aminotransferase (ALT/SGPT) 16, Alkaline Phosphatase 132H, Total Bilirubin 0.6, Total Protein 5.3L, Albumin 2.1L, Magnesium Level 2.2, Albumin/ Globulin Ratio 0.66L 12/07/16 11:29: Bedside Glucose (Misc Panel) 218H 12/07/16 20:38: Bedside Glucose (Misc Panel) 219H CBC/BMP Laboratory Tests 12/07/16 05:07 Red Blood Count 3.19 L, Mean Corpuscular Volume 96.4 H, Mean Corpuscular Hemoglobin 31.1, Mean Corpuscular Hemoglobin Concent 32.2, Red Cell Distribution Width 14.1, Calcium Level 8.3 L, Aspartate Amino Transf (AST/SGOT) 21, Alanine Aminotransferase (ALT/SGPT) 16, Alkaline Phosphatase 132 H, Total Bilirubin 0.6, Total Protein 5.3 L, Albumin 2.1 L Microbiology Microbiology 12/04/16 Blood Culture - Preliminary, Resulted No Growth after 72 hours. All specime... 12/04/16 Blood Culture - Preliminary, Resulted No Growth after 72 hours. All specime... 12/05/16 Gram Stain - Final, Complete 12/05/16 Body Fluid Culture - Final, Complete IVET ESTRADA DO Dec 07, 2016 21:36
[2016-12-08 05:42] LABS: MEAN CORPUSCULAR HEMOGLOBIN 30.5 pg (27.0-33.0); MEAN CORPUSCULAR HGB CONC 32.1 g/dl (32.0-36.5); MEAN CORPUSCULAR VOLUME 95.2 fl (80.0-96.0); RED CELL DISTRIBUTION WIDTH 14.1 % (11.5-14.5); WHITE BLOOD COUNT 4.8 K/mm3 (4.0-10.0)
[2016-12-08 06:00] VITALS: BP 126/58
[2016-12-08 06:09] LABS: ALBUMIN 2.1 GM/DL (3.2-5.2); ALBUMIN/GLOBULIN RATIO 0.66 (1.00-1.93); BILIRUBIN,TOTAL 0.6 MG/DL (0.2-1.0); CREATININE FOR GFR 1.63 MG/DL (0.70-1.30); GLOMERULAR FILTRATION RATE 44.1 (>42); MAGNESIUM LEVEL 2.3 MG/DL (1.8-2.4); POTASSIUM SERUM 5.1 MEQ/L (3.5-5.1); TOTAL PROTEIN 5.3 GM/DL (6.4-8.2)
[2016-12-08] MEDS: HumaLOG INSULIN (NovoLOG) PER UNIT SC SCH (07:30)
[2016-12-08] MEDS: CYANOCOBALAMIN 500 MCG TAB PO SCH (08:45)
[2016-12-08] MEDS: FOLIC ACID 1 MG TAB PO SCH (08:45)
[2016-12-08] MEDS: SPIRONOLACTONE 50 MG TAB PO SCH (08:45)
[2016-12-08] MEDS: OMEPRAZOLE 20 MG CAP PO SCH (08:46)
[2016-12-08] MEDS: FINASTERIDE 5 MG TAB PO SCH (08:46)
[2016-12-08] MEDS: FUROSEMIDE 20 MG TAB PO SCH (08:46)
[2016-12-08] MEDS: BRIMONIDINE 0.15% OPHTH SOLN 5 ML OU SCH (08:48)
[2016-12-08] MEDS ORDERED: NADO20TA PO (10:24)
[2016-12-08] MEDS ORDERED: ALDA50TA2 PO (10:24)
--- NOTE | 2016-12-09 06:38 | DSES ---
DATE OF ADMISSION: 12/04/2016 DATE OF DISCHARGE: 12/08/2016 PRIMARY CARE PROVIDER: Dr. Donavan Reynolds. HISTORY: This is a 76-year-old male patient of Dr. Reynolds, who presented to the [facility] Emergency Room with increasing shortness of breath, progressively worsening over the last several days. He also complained of dyspnea on exertion, orthopnea, productive cough with green sputum production, increased abdominal distention which had worsened over the last month, as well as increased lower extremity edema. He was evaluated in the emergency room and felt to have decompensated cirrhosis and, therefore, he was admitted to the hospital for further management. During his hospitalization, he has remained medically stable. He underwent therapeutic paracentesis. 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 He seems to be tolerating this well. His diuretic therapy has been increased from Lasix 20 mg daily with the addition of spironolactone. He also seems to be tolerating this. His respiratory status is improved. He has been by physical therapy who feel as though he is safe to return home. He has no additional questions. His is at bedside. He has remained afebrile without any leukocytosis. He has chronic kidney disease and his renal function has also remained stable. His international normalized ratio (INR) is 1.2 on admission without anticoagulation. His blood cultures were negative times two. His body fluid culture of the abdominal fluid obtained from paracentesis was also benign. H DISCHARGE DIAGNOSES: 1. Decompensated liver failure with ascites. 2. Chronic diastolic congestive heart failure. 3. Diabetes mellitus type 2. 4. Monoclonal gammopathy of unknown significance. 5. Benign prostatic hypertrophy (BPH) with urinary obstruction. DISCHARGE MEDICATIONS: - vitamin D 50,000 units every other week - Travatan Z one drop each eye before bed - simvastatin 40 mg before bed - omeprazole 40 mg twice daily - metformin 500 mg daily - lisinopril 10 mg daily - Lantus 40 units subcutaneous before bed - Lasix 20 mg daily - folic acid 1 mg daily - finasteride 5 mg daily - ferrous sulfate 325 mg twice daily - vitamin B12 1000 mcg by mouth daily - Alphagan P one drop each eye daily - nadolol 20 mg daily - spironolactone 50 mg daily DISCHARGE PLAN: Followup with Dr. Reynolds in 7-10 days. Activity should be as tolerated. Diet should be consistent carbohydrate, no added salt.
== END 2016-12-08 11:25 | disposition home or self-care (01) | DRG 432 ==
LOC: M ED 09:53 → M ED INP 17:42 → M PCU 18:37 → M MSPAV 12-07 16:00
PROVIDERS: ADMIT Internal Medicine; ATTEND Family Medicine
PROC: 0W9G3ZZ Drainage of Peritoneal Cavity, Percutaneous Approach (ICD-10-PCS; principal; 2016-12-05)
DX: K70.31 Alcoholic cirrhosis of liver with ascites (principal); I50.33 Acute on chronic diastolic (congestive) heart failure; I13.0 Hypertensive heart and chronic kidney disease with heart failure and stage 1 through stage 4 chronic kidney disease, or unspecified chronic kidney disease; R06.00 Dyspnea, unspecified; E11.9 Type 2 diabetes mellitus without complications; I25.10 Atherosclerotic heart disease of native coronary artery without angina pectoris; E78.5 Hyperlipidemia, unspecified; E66.9 Obesity, unspecified; D47.2 Monoclonal gammopathy; F10.10 Alcohol abuse, uncomplicated; D69.6 Thrombocytopenia, unspecified; N40.1 Benign prostatic hyperplasia with lower urinary tract symptoms; K31.819 Angiodysplasia of stomach and duodenum without bleeding; I48.91 Unspecified atrial fibrillation; D63.8 Anemia in other chronic diseases classified elsewhere; N18.3 Chronic kidney disease, stage 3 (moderate); Z86.718 Personal history of other venous thrombosis and embolism; Z79.4 Long term (current) use of insulin; Z79.899 Other long term (current) drug therapy; Z68.35 Body mass index [BMI] 35.0-35.9, adult

== ENCOUNTER → 2016-12-16 | Outpatient (REF) | payer OTHER ==
[~2016-12-16] MED LIST changes: +ALDA50TA2 PO; +ALPH0.156 OU; +BRIM1OPD OU; +FERR1TAB8 PO; +FURO20TA2 PO; +INSULANT SC; +METF-699 PO; +NADO20TA PO; +OMEP40CA2 PO; +SPIR50TA2 PO; +TRAV04OPD OU; +VITA10002 PO
[2016-12-16 20:01] LABS: ADD MORPHOLOGY? YES; BASO # 0.1 K/mm3 (0.0-0.2); EOS # 0.2 K/mm3 (0.0-0.50); EOS % 2.6 % (0.0-3.0); LARGE UNSTAINED CELL # 0.1 K/mm3 (0.0-0.4); LARGE UNSTAINED CELL % 1.9 % (0.0-4.0); LYMPH % 17.2 % (24.0-44.0); MEAN CORPUSCULAR HEMOGLOBIN 29.7 pg (27.0-33.0); MEAN CORPUSCULAR HGB CONC 31.2 g/dl (32.0-36.5); MEAN CORPUSCULAR VOLUME 95.1 fl (80.0-96.0); MONO # 0.4 K/mm3 (0.0-0.8); MONO % 6.6 % (0.0-5.0); NEUTROPHILS # 4.1 K/mm3 (1.8-7.7); NEUTROPHILS % 70.6 % (36.0-66.0); RED CELL DISTRIBUTION WIDTH 14.2 % (11.5-14.5); WHITE BLOOD COUNT 5.9 K/mm3 (4.0-10.0)
[2016-12-16 20:34] LABS: ALBUMIN 2.4 GM/DL (3.2-5.2); CALCIUM LEVEL 8.5 MG/DL (8.8-10.2); CREATININE FOR GFR 1.36 MG/DL (0.70-1.30); GLOMERULAR FILTRATION RATE 54.4 (>42); MAGNESIUM LEVEL 1.9 MG/DL (1.8-2.4); PERCENT SATURATION 16.7 % (19.7-50.0); PHOSPHORUS LEVEL 2.4 MG/DL (2.5-4.9); POTASSIUM SERUM 4.7 MEQ/L (3.5-5.1)
[2016-12-16 22:11] LABS: PLATELET COUNT, AUTOMATED 67 k/mm3 (150-450)
[2016-12-16 22:13] LABS: ANISOCYTOSIS 1+
== END ==
LOC: M SFHCPLAZ 15:24
PROVIDERS: ATTEND Family Medicine
DX: I12.9 Hypertensive chronic kidney disease with stage 1 through stage 4 chronic kidney disease, or unspecified chronic kidney disease (principal); N18.3 Chronic kidney disease, stage 3 (moderate); D50.9 Iron deficiency anemia, unspecified; I50.30 Unspecified diastolic (congestive) heart failure; Z79.891 Long term (current) use of opiate analgesic; Z79.4 Long term (current) use of insulin
CPT/HCPCS: 36415; 80069; 82728; 83550; 83735; 83880; 85025; G0463

== ENCOUNTER → 2017-01-22 | Outpatient (REF) | payer OTHER ==
[2017-01-22 14:08] LABS: BASO % 0.6 % (0.0-1.0); EOS # 0.1 K/mm3 (0.0-0.50); EOS % 2.6 % (0.0-3.0); LARGE UNSTAINED CELL # 0.1 K/mm3 (0.0-0.4); LARGE UNSTAINED CELL % 0.9 % (0.0-4.0); LYMPH # 0.9 K/mm3 (1.5-4.5); MEAN CORPUSCULAR HEMOGLOBIN 29.4 pg (27.0-33.0); MEAN CORPUSCULAR HGB CONC 31.1 g/dl (32.0-36.5); MEAN CORPUSCULAR VOLUME 94.5 fl (80.0-96.0); MONO # 0.4 K/mm3 (0.0-0.8); MONO % 7.4 % (0.0-5.0); NEUTROPHILS # 3.8 K/mm3 (1.8-7.7); NEUTROPHILS % 72.5 % (36.0-66.0); RED CELL DISTRIBUTION WIDTH 14.3 % (11.5-14.5); WHITE BLOOD COUNT 5.2 K/mm3 (4.0-10.0)
[2017-01-22 14:16] LABS: FERRITIN 38 NG/ML (26-388); FREE T4 1.31 NG/DL (0.76-1.46); PERCENT SATURATION 23.8 % (19.7-50.0); TOTAL IRON BINDING CAPACITY 336 UG/DL (250-450)
[2017-01-22 14:32] LABS: PLATELET COUNT, AUTOMATED 75 k/mm3 (150-450)
[2017-01-24 00:08] LABS: FREE KAPPA LIGHT CHAINS SERUM 105.2 mg/L (3.3-19.4); FREE LAMBDA LIGHT CHAINS SERUM 63.5 mg/L (5.7-26.3); KAPPA/LAMBDA RATIO SERUM 1.66 (0.26-1.65)
[2017-01-28 00:06] LABS: FREE KAPPA LIGHT CHAINS URINE 2.11 mg/L (1.35-24.19); FREE LAMBDA LIGHT CHAINS URINE 0.3 mg/L (0.24-6.66)
== END ==
LOC: M SFHCPLAZ 10:54
PROVIDERS: ATTEND Family Medicine
DX: K72.90 Hepatic failure, unspecified without coma (principal); D50.9 Iron deficiency anemia, unspecified; D47.2 Monoclonal gammopathy; E11.9 Type 2 diabetes mellitus without complications; M47.816 Spondylosis without myelopathy or radiculopathy, lumbar region; M16.0 Bilateral primary osteoarthritis of hip; E78.5 Hyperlipidemia, unspecified; I12.9 Hypertensive chronic kidney disease with stage 1 through stage 4 chronic kidney disease, or unspecified chronic kidney disease; N18.3 Chronic kidney disease, stage 3 (moderate); N40.1 Benign prostatic hyperplasia with lower urinary tract symptoms; I50.30 Unspecified diastolic (congestive) heart failure; K21.9 Gastro-esophageal reflux disease without esophagitis; E55.9 Vitamin D deficiency, unspecified; M17.0 Bilateral primary osteoarthritis of knee; E53.8 Deficiency of other specified B group vitamins; Z79.4 Long term (current) use of insulin; Z79.891 Long term (current) use of opiate analgesic; Z79.899 Other long term (current) drug therapy

== ENCOUNTER 2017-02-08 15:10 | Inpatient (IN) | payer OTHER, MEDICARE ==
[~2017-02-08] VITALS: Ht 167.6 cm; Wt 83.3 kg
[~2017-02-08 15:10] MED LIST changes: -BRIM1OPD OU; -FERR1TAB8 PO; -FURO20TA2 PO; -METF-699 PO; -SPIR50TA2 PO; -VITA10002 PO
[2017-02-08] MEDS ORDERED: FUROSEMIDE 40 MG/4 ML VIAL (J1940) IV ONE (16:00)
--- NOTE | 2017-02-08 16:17 | REP ---
Chest two views HISTORY: Shortness of breath Comparison: 12/04/2016 A minimal increase in interstitial markings is present in the lower lobes consistent with chronic interstitial fibrosis. The heart is upper limits of normal in size. The pulmonary vasculature is normal in appearance. T degenerative changes present in the thoracic spine. IMPRESSION: Chronic bibasilar interstitial fibrosis. Signed by Reji Olivares MD 02/08/2017 04:08 P
[2017-02-08 16:28] LABS: BASO % 0.4 % (0.0-1.0); EOS # 0.2 10^3/uL (0.0-0.50); EOS % 2.2 % (0.0-3.0); LYMPH # 0.9 10^3/uL (1.5-4.5); LYMPH % 12.1 % (24.0-44.0); MEAN CORPUSCULAR HEMOGLOBIN 29.2 pg (27.0-33.0); MEAN CORPUSCULAR HGB CONC 30.6 g/dl (32.0-36.5); MEAN CORPUSCULAR VOLUME 95.4 fl (80.0-96.0); MONO # 0.5 10^3/uL (0.0-0.8); MONO % 7.4 % (0.0-5.0); NEUTROPHILS # 5.5 10^3/uL (1.8-7.7); NEUTROPHILS % 76.9 % (36.0-66.0); PLATELET COUNT, AUTOMATED 67 10^3/uL (150-450); RED CELL DISTRIBUTION WIDTH 14.9 % (11.5-14.5); WHITE BLOOD COUNT 7.2 10^3/uL (4.0-10.0)
[2017-02-08 16:37] LABS: INR 1.23
[2017-02-08 16:58] LABS: ALBUMIN 2.5 GM/DL (3.2-5.2); ALBUMIN/GLOBULIN RATIO 0.6 (1.00-1.93); BILIRUBIN,DIRECT 0.5 MG/DL (0.0-0.2); BILIRUBIN,TOTAL 1.2 MG/DL (0.2-1.0); CALCIUM LEVEL 8.5 MG/DL (8.8-10.2); CREATININE FOR GFR 1.47 MG/DL (0.70-1.30); GLOMERULAR FILTRATION RATE 49.7 (>42); POTASSIUM SERUM 4.5 MEQ/L (3.5-5.1); TOTAL PROTEIN 6.7 GM/DL (6.4-8.2)
[2017-02-08] MEDS ORDERED: SPIR50TA2 PO ×2 (17:44→17:53)
[2017-02-08] MEDS ORDERED: NADO20TA PO ×2 (17:44→17:53)
[2017-02-08] MEDS ORDERED: TRAV04OPD OU (17:53)
[2017-02-08] MEDS ORDERED: VITA10002 PO (17:53)
[2017-02-08] MEDS ORDERED: FURO20TA2 PO (17:53)
[2017-02-08] MEDS ORDERED: METF-699 PO (17:53)
[2017-02-08] MEDS ORDERED: BRIM1OPD OU (17:53)
[2017-02-08] MEDS ORDERED: SIMV40TA2 PO (17:53)
[2017-02-08] MEDS ORDERED: FINA5TAB2 PO (17:53)
[2017-02-08] MEDS ORDERED: FOLI1TAB4 PO (17:53)
[2017-02-08] MEDS ORDERED: DRIS50002 PO (17:53)
[2017-02-08] MEDS ORDERED: INSULANT SC (17:53)
[2017-02-08] MEDS ORDERED: OMEP40CA2 PO (17:53)
[2017-02-08] MEDS ORDERED: FERR1TAB8 PO (17:53)
[2017-02-08] MEDS ORDERED: DEXTROSE 50% 50 ML SYRINGE IV PRN (19:00)
[2017-02-08] MEDS ORDERED: GLUCOSE 4 GM CHEW TABLET PO PRN (19:00)
[2017-02-08] MEDS ORDERED: GLUCAGON FOR INJ 1 MG VIAL (J1610) SC PRN (19:00)
[2017-02-08] MEDS ORDERED: metFORMIN XR 500MG TAB *GLUCOPHAGE XR PO ONE (20:00)
[2017-02-08] MEDS: FUROSEMIDE 40 MG/4 ML VIAL (J1940) IV SCH (20:17)
[2017-02-08 21:15] VITALS: BP 164/85
[2017-02-08] MEDS: HumaLOG INSULIN (NovoLOG) PER UNIT SC SCH (21:38)
[2017-02-08] MEDS: DOCUSATE SODIUM 100 MG CAP PO SCH (21:48)
[2017-02-08] MEDS: OMEPRAZOLE 20 MG CAP PO SCH (21:48)
[2017-02-08] MEDS: FERROUS SULFATE 325MG TAB PO SCH (21:48)
[2017-02-08] MEDS: SIMVASTATIN 40 MG TAB PO SCH (21:48)
[2017-02-08] MEDS: LEVEMIR (INSULIN DETEMIR) 1 UNITS/0.01ML SC SCH (21:49)
[2017-02-08] MEDS: LATANOPROST 0.005% OPHTH SOLN 2.5 ML OU SCH (21:49)
[2017-02-08] MEDS: BRIMONIDINE 0.1% OPHTH SOLN 5 ML OU SCH (21:49)
[2017-02-08] MEDS: NADOLOL 20MG TABLET PO SCH (21:49)
[2017-02-09] VITALS (8 sets, daily range): BP systolic 116–146; BP diastolic 58–72
[2017-02-09] MEDS: FUROSEMIDE 40 MG/4 ML VIAL (J1940) IV SCH ×6 (00:23→20:31)
[2017-02-09] MEDS: HumaLOG INSULIN (NovoLOG) PER UNIT SC SCH ×4 (07:30→20:34)
[2017-02-09 07:53] LABS: BASO % 0.1 % (0.0-1.0); EOS % 0.1 % (0.0-3.0); LYMPH # 0.6 10^3/uL (1.5-4.5); LYMPH % 7.2 % (24.0-44.0); MEAN CORPUSCULAR HEMOGLOBIN 29.8 pg (27.0-33.0); MEAN CORPUSCULAR HGB CONC 30.5 g/dl (32.0-36.5); MEAN CORPUSCULAR VOLUME 97.5 fl (80.0-96.0); MONO # 0.6 10^3/uL (0.0-0.8); MONO % 7.5 % (0.0-5.0); NEUTROPHILS # 6.6 10^3/uL (1.8-7.7); NEUTROPHILS % 84.1 % (36.0-66.0); PLATELET COUNT, AUTOMATED 61 10^3/uL (150-450); RED CELL DISTRIBUTION WIDTH 14.8 % (11.5-14.5); WHITE BLOOD COUNT 7.9 10^3/uL (4.0-10.0)
[2017-02-09 08:12] LABS: ALBUMIN 2.3 GM/DL (3.2-5.2); ALBUMIN/GLOBULIN RATIO 0.53 (1.00-1.93); BILIRUBIN,TOTAL 0.9 MG/DL (0.2-1.0); CALCIUM LEVEL 8.4 MG/DL (8.8-10.2); CREATININE FOR GFR 1.7 MG/DL (0.70-1.30); MAGNESIUM LEVEL 1.6 MG/DL (1.8-2.4); POTASSIUM SERUM 4.9 MEQ/L (3.5-5.1); TOTAL PROTEIN 6.6 GM/DL (6.4-8.2)
[2017-02-09 08:25] LABS: ADD MANUAL DIFFER NO; DIFF SLIDE NUMBER 79
[2017-02-09] MEDS: FOLIC ACID 1 MG TAB PO SCH (08:47)
[2017-02-09] MEDS: OMEPRAZOLE 20 MG CAP PO SCH ×2 (08:47→20:34)
[2017-02-09] MEDS: DOCUSATE SODIUM 100 MG CAP PO SCH ×2 (08:47→20:32)
[2017-02-09] MEDS: SPIRONOLACTONE 50 MG TAB PO SCH (08:47)
[2017-02-09] MEDS: CYANOCOBALAMIN 500 MCG TAB PO SCH (08:47)
[2017-02-09] MEDS: FERROUS SULFATE 325MG TAB PO SCH ×2 (08:47→20:33)
[2017-02-09] MEDS: FINASTERIDE 5 MG TAB PO SCH (08:48)
[2017-02-09] MEDS: BRIMONIDINE 0.1% OPHTH SOLN 5 ML OU SCH ×2 (08:48→21:55)
--- NOTE | 2017-02-09 12:03 | IPNPDOC ---
Subjective Date Seen The patient was seen on 02/09/17. Subjective Chief Complaint/HPI The patient is a 76-year-old male admitted with a reason for visit of Ascites, Decompensated Hepatic Cirrhosis. Events since last encounter Pt states he feels a little better today. Still dyspnic. Still with Abd pain. Denies CP. Constitutional: Denies: Chills, Fever Pulmonary: Reports: Dyspnea Cardiovascular: Denies: Chest Pain Gastrointestinal: Reports: Abdominal Pain Objective Physical Examination General Exam: Positive: Alert, No Acute Distress Neck Exam: Positive: Supple, JVD Chest Exam: Positive: Diminished Heart Exam: Positive: Rate Normal, Regular Rhythm Abdomen Exam: Positive: Normal bowel sounds, Tenderness, Other (Distended with ascites) Extremity Exam: Positive: Edema Assessment /Plan Problems (1) Diastolic congestive heart failure Status: Acute Problem Specific Plan: Monitor Clinically, Repeat Labs Problem Text: 02/09 - Acute on chronic diastolic CHF. On Lasix 40 mg IV q4 hrs for net neg. On Spironolactone 50 mg daily. (2) Ascites Status: Acute Problem Specific Plan: Monitor Clinically, Repeat Labs Problem Text: 02/09 - Ascites has reaccumulated. He is being diuresed. He may end up needing a therapeutic tap. Monitor. Will consult his display card writer , Dr. Britton. Discuss with attending. (3) Hepatic cirrhosis Status: Chronic Problem Specific Plan: Monitor Clinically, Repeat Labs Problem Text: See above. (4) Hypoalbuminemia Problem Specific Plan: Monitor Clinically, Repeat Labs Problem Text: 02/09 - Albumin 2.3. Low oncotic pressure from the liver disease causing third spacing. Nutrition consult ordered. (5) DM2 (diabetes mellitus, type 2) Status: Chronic Problem Specific Plan: Monitor Clinically, Repeat Labs Problem Text: On SSI and Levemir. (6) HTN (hypertension) Status: Chronic Problem Specific Plan: Monitor Clinically Problem Text: On Corgard, spironolactone, Lasix. (7) Thrombocytopenia Problem Specific Plan: Monitor Clinically, Repeat Labs Problem Text: 02/09 - Platelets 61. Thrombopenia from liver failure. Monitor closely. (8) Anemia Status: Chronic Problem Specific Plan: Monitor Clinically, Repeat Labs Problem Text: On Iron and Vitamin B12 supplementation. Plan/VTE VTE Prophylaxis Ordered?: Yes (TEDs. Will order SCDs) Plan/Urinary Catheter Reason for insertion/continuin: Critical Pt monitoring VS, I&O, 24H, [facility] Vital Signs/I&O Vital Signs Date Time Temp Pulse Resp B/P (MAP) Pulse Ox O2 Delivery O2 Flow Rate FiO2 02/09/17 08:00 98.1 83 19 117/58 (77) 100 Nasal Cannula 2.0 I&O- Last 24 Hours up to 6 AM 02/10/17 05:59 Intake Total 360 ml Balance 360 ml Laboratory Data 24H LABS Laboratory Tests 2 02/08/17 16:14: Immature Granulocyte % (Auto) 1.0H, White Blood Count 7.2, Red Blood Count 3.91L , Hemoglobin 11.4L, Hematocrit 37.3L, Mean Corpuscular Volume 95.4, Mean Corpuscular Hemoglobin 29.2, Mean Corpuscular Hemoglobin Concent 30.6L, Red Cell Distribution Width 14.9H, Platelet Count 67L, Neutrophils (%) (Auto) 76.9H , Lymphocytes (%) (Auto) 12.1L, Monocytes (%) (Auto) 7.4H, Eosinophils (%) (Auto ) 2.2, Basophils (%) (Auto) 0.4, Neutrophils # (Auto) 5.5, Lymphocytes # (Auto) 0.9L, Monocytes # (Auto) 0.5, Eosinophils # (Auto) 0.2, Basophils # (Auto) 0.0, Immature Granulocyte # (Auto) 0.1H, Nucleated Red Blood Cells % (auto) 0.0, Prothrombin Time 15.7H, Prothromb Time International Ratio 1.23, Activated Partial Thromboplast Time 28.9, Anion Gap 4L, Glomerular Filtration Rate 49.7, Calcium Level 8.5L, Aspartate Amino Transf (AST/SGOT) 27, Alanine Aminotransferase (ALT/SGPT) 21, Alkaline Phosphatase 182H, Total Bilirubin 1.2H , Direct Bilirubin 0.5H, Total Creatine Kinase 45, Creatine Kinase MB 1.5, Creatine Kinase MB Relative Index 3.33, Troponin I 0.02, LQ-Qhb-A-Type Natriuretic Peptide 1442H, Total Protein 6.7, Albumin 2.5L, Albumin/Globulin Ratio 0.60L, Lipase 310 02/08/17 21:29: Bedside Glucose (Misc Panel) 179H 02/09/17 07:42: Immature Granulocyte % (Auto) 1.0H, White Blood Count 7.9, Red Blood Count 3.56L , Hemoglobin 10.6L, Hematocrit 34.7L, Mean Corpuscular Volume 97.5H, Mean Corpuscular Hemoglobin 29.8, Mean Corpuscular Hemoglobin Concent 30.5L, Red Cell Distribution Width 14.8H, Platelet Count 61L, Neutrophils (%) (Auto) 84.1H , Lymphocytes (%) (Auto) 7.2L, Monocytes (%) (Auto) 7.5H, Eosinophils (%) (Auto ) 0.1, Basophils (%) (Auto) 0.1, Neutrophils # (Auto) 6.6, Lymphocytes # (Auto) 0.6L, Monocytes # (Auto) 0.6, Eosinophils # (Auto) 0.0, Basophils # (Auto) 0.0, Immature Granulocyte # (Auto) 0.1H, Nucleated Red Blood Cells % (auto) 0.0, Anion Gap 4L, Glomerular Filtration Rate 42.0, Calcium Level 8.4L, Aspartate Amino Transf (AST/SGOT) 23, Alanine Aminotransferase (ALT/SGPT) 19, Alkaline Phosphatase 163H, Total Bilirubin 0.9, Total Protein 6.6, Albumin 2.3L, Albumin/ Globulin Ratio 0.53L, Blood Urea Nitrogen 41H, Creatinine 1.70H, Sodium Level 144, Potassium Level 4.9, Chloride Level 107, Carbon Dioxide Level 33H, Magnesium Level 1.6L CBC/BMP Laboratory Tests 02/08/17 16:14 Red Blood Count 3.91 L, Mean Corpuscular Volume 95.4, Mean Corpuscular Hemoglobin 29.2, Mean Corpuscular Hemoglobin Concent 30.6 L, Red Cell Distribution Width 14.9 H, Neutrophils (%) (Auto) 76.9 H, Lymphocytes (%) (Auto ) 12.1 L, Monocytes (%) (Auto) 7.4 H, Eosinophils (%) (Auto) 2.2, Basophils (%) (Auto) 0.4, Neutrophils # (Auto) 5.5, Lymphocytes # (Auto) 0.9 L, Monocytes # ( Auto) 0.5, Eosinophils # (Auto) 0.2, Basophils # (Auto) 0.0 02/09/17 07:42 Red Blood Count 3.56 L, Mean Corpuscular Volume 97.5 H, Mean Corpuscular Hemoglobin 29.8, Mean Corpuscular Hemoglobin Concent 30.5 L, Red Cell Distribution Width 14.8 H, Neutrophils (%) (Auto) 84.1 H, Lymphocytes (%) (Auto ) 7.2 L, Monocytes (%) (Auto) 7.5 H, Eosinophils (%) (Auto) 0.1, Basophils (%) ( Auto) 0.1, Neutrophils # (Auto) 6.6, Lymphocytes # (Auto) 0.6 L, Monocytes # ( Auto) 0.6, Eosinophils # (Auto) 0.0, Basophils # (Auto) 0.0, Calcium Level 8.4 L , Aspartate Amino Transf (AST/SGOT) 23, Alanine Aminotransferase (ALT/SGPT) 19, Alkaline Phosphatase 163 H, Total Bilirubin 0.9, Total Protein 6.6, Albumin 2.3 L Vikram Mallory RPA-C Feb 09, 2017 12:03
[2017-02-09] MEDS: NADOLOL 20MG TABLET PO SCH (18:06)
[2017-02-09] MEDS: SIMVASTATIN 40 MG TAB PO SCH (20:34)
[2017-02-09] MEDS: LEVEMIR (INSULIN DETEMIR) 1 UNITS/0.01ML SC SCH (20:35)
[2017-02-09] MEDS: LATANOPROST 0.005% OPHTH SOLN 2.5 ML OU SCH (21:55)
[2017-02-10] MEDS: FUROSEMIDE 40 MG/4 ML VIAL (J1940) IV SCH ×4 (00:15→12:21)
[2017-02-10 03:57] VITALS: BP 120/67
[2017-02-10 06:11] LABS: MEAN CORPUSCULAR HEMOGLOBIN 29.2 pg (27.0-33.0); MEAN CORPUSCULAR HGB CONC 29.6 g/dl (32.0-36.5); MEAN CORPUSCULAR VOLUME 98.7 fl (80.0-96.0); PLATELET COUNT, AUTOMATED 54 10^3/uL (150-450); WHITE BLOOD COUNT 9.9 10^3/uL (4.0-10.0)
[2017-02-10 06:12] LABS: BASO % 0.2 % (0.0-1.0); EOS % 0.2 % (0.0-3.0); IMMATURE GRANULOCYTE % 1.2 % (0-0); LYMPH # 0.8 10^3/uL (1.5-4.5); LYMPH % 8.3 % (24.0-44.0); MONO # 0.8 10^3/uL (0.0-0.8); MONO % 8.1 % (0.0-5.0)
[2017-02-10 06:18] LABS: ALBUMIN 2.4 GM/DL (3.2-5.2); ALBUMIN/GLOBULIN RATIO 0.56 (1.00-1.93); CALCIUM LEVEL 8.6 MG/DL (8.8-10.2); CREATININE FOR GFR 1.91 MG/DL (0.70-1.30); GLOMERULAR FILTRATION RATE 36.8 (>42); POTASSIUM SERUM 4.7 MEQ/L (3.5-5.1); TOTAL PROTEIN 6.7 GM/DL (6.4-8.2)
[2017-02-10 07:30] VITALS: BP 132/64
[2017-02-10] MEDS: HumaLOG INSULIN (NovoLOG) PER UNIT SC SCH ×2 (07:30→12:00)
[2017-02-10] MEDS: SPIRONOLACTONE 50 MG TAB PO SCH (09:00)
[2017-02-10] MEDS: FOLIC ACID 1 MG TAB PO SCH (09:00)
[2017-02-10] MEDS: CYANOCOBALAMIN 500 MCG TAB PO SCH (09:00)
[2017-02-10] MEDS: FERROUS SULFATE 325MG TAB PO SCH (09:00)
[2017-02-10] MEDS: OMEPRAZOLE 20 MG CAP PO SCH (09:00)
[2017-02-10] MEDS: FINASTERIDE 5 MG TAB PO SCH (09:00)
[2017-02-10] MEDS: DOCUSATE SODIUM 100 MG CAP PO SCH ×2 (09:00→20:39)
[2017-02-10] MEDS: BRIMONIDINE 0.1% OPHTH SOLN 5 ML OU SCH ×2 (09:04→20:35)
--- NOTE | 2017-02-10 09:10 | ECGEPIP ---
Stationary ECG Study [facility] - ED Test Date: 2017-02-08 Pat Name: RACHAEL MOODY Department: Room: - Gender: M Associate Sales Representative: araceli : 1940 Requested By: LUIS Hurley Order Number: [id number] Reading MD: Connie Bryant Measurements Intervals [place] Rate: 61 P: [place]: 0 QRS: 8 QRSD: 97 T: 51 QT: 364 QTc: 369 Interpretive Statements ATRIAL FIBRILLATION NONSPECIFIC ST & T-WAVE ABNORMALITY ABNORMAL RHYTHM ECG SIMILAR 12/04/16 Electronically Signed On 02-10-2017 9:10:39 EDT by Connie Bryant
--- NOTE | 2017-02-10 09:36 | IPNPDOC ---
Subjective Date Seen The patient was seen on 02/10/17. Subjective Chief Complaint/HPI The patient is a 76-year-old male admitted with a reason for visit of Ascites, Decompensated Hepatic Cirrhosis. Events since last encounter Pt sleeping. Wakes to voice but falls back asleep quickly. He did deny CP. He nodded that his breathing is better than yesterday. Still with some diffuse abd discomfort. Constitutional: Denies: Chills, Fever Pulmonary: Reports: Dyspnea Cardiovascular: Denies: Chest Pain Gastrointestinal: Reports: Abdominal Pain Objective Physical Examination General Exam: Positive: Alert, No Acute Distress Neck Exam: Positive: Supple, JVD Chest Exam: Positive: Diminished Heart Exam: Positive: Rate Normal, Regular Rhythm Abdomen Exam: Positive: Normal bowel sounds, Tenderness, Other (Distended with ascites) Extremity Exam: Positive: Edema Assessment /Plan Problems (1) Diastolic congestive heart failure Status: Acute Problem Specific Plan: Monitor Clinically, Repeat Labs Problem Text: 02/10 - Acute on chronic diastolic CHF. On Lasix 40 mg IV q4 hrs for net neg. On Spironolactone 50 mg daily. According to computer, down about 1.8L. 02/09 - Acute on chronic diastolic CHF. On Lasix 40 mg IV q4 hrs for net neg. On Spironolactone 50 mg daily. (2) Ascites Status: Acute Problem Specific Plan: Monitor Clinically, Repeat Labs Problem Text: 02/10 - H/O ascites. Had tap in November. Ascites has reaccumulated. Pt may need a therapeutic tap. Dr Britton has been consulted. 02/09 - Ascites has reaccumulated. He is being diuresed. He may end up needing a therapeutic tap. Monitor. Will consult his metallurgical laboratory assistant, Dr. Britton. Discuss with attending. (3) Hepatic cirrhosis Status: Chronic Problem Specific Plan: Monitor Clinically, Repeat Labs Problem Text: See above. (4) Hypoalbuminemia Problem Specific Plan: Monitor Clinically, Repeat Labs Problem Text: 02/10 - Albumin 2.4. 02/09 - Albumin 2.3. Low oncotic pressure from the liver disease causing third spacing. Nutrition consult ordered. (5) DM2 (diabetes mellitus, type 2) Status: Chronic Problem Specific Plan: Monitor Clinically, Repeat Labs Problem Text: On SSI and Levemir. (6) HTN (hypertension) Status: Chronic Problem Specific Plan: Monitor Clinically Problem Text: On Corgard, spironolactone, Lasix. (7) Thrombocytopenia Problem Specific Plan: Monitor Clinically, Repeat Labs Problem Text: 02/09 - Platelets 54. 02/09 - Platelets 61. Thrombopenia from liver failure. Monitor closely. (8) Anemia Status: Chronic Problem Specific Plan: Monitor Clinically, Repeat Labs Problem Text: On Iron and Vitamin B12 supplementation. Plan/VTE VTE Prophylaxis Ordered?: Yes (TEDs and SCDs) Plan/Urinary Catheter Reason for insertion/continuin: Critical Pt monitoring VS, I&O, 24H, Fishbone Vital Signs/I&O Vital Signs Date Time Temp Pulse Resp B/P (MAP) Pulse Ox O2 Delivery O2 Flow Rate FiO2 02/10/17 08:00 Nasal Cannula 2.0 02/10/17 07:30 98.0 83 24 132/64 (86) 98 I&O- Last 24 Hours up to 6 AM 02/11/17 06:00 Output Total 200 ml Balance -200 ml Laboratory Data 24H LABS Laboratory Tests 2 02/09/17 12:10: Bedside Glucose (Misc Panel) 161H 02/09/17 16:52: Bedside Glucose (Misc Panel) 143H 02/09/17 20:14: Bedside Glucose (Misc Panel) 174H 02/10/17 05:05: Immature Granulocyte % (Auto) 1.2H, White Blood Count 9.9, Red Blood Count 3.80L , Hemoglobin 11.1L, Hematocrit 37.5L, Mean Corpuscular Volume 98.7H, Mean Corpuscular Hemoglobin 29.2, Mean Corpuscular Hemoglobin Concent 29.6L, Red Cell Distribution Width 15.0H, Platelet Count 54L, Neutrophils (%) (Auto) 82.0H , Lymphocytes (%) (Auto) 8.3L, Monocytes (%) (Auto) 8.1H, Eosinophils (%) (Auto ) 0.2, Basophils (%) (Auto) 0.2, Neutrophils # (Auto) 8.0H, Lymphocytes # (Auto ) 0.8L, Monocytes # (Auto) 0.8, Eosinophils # (Auto) 0.0, Basophils # (Auto) 0.0 , Immature Granulocyte # (Auto) 0.1H, Nucleated Red Blood Cells % (auto) 0.0, Anion Gap 2L, Glomerular Filtration Rate 36.8L, Blood Urea Nitrogen 49H, Creatinine 1.91H, Sodium Level 142, Potassium Level 4.7, Chloride Level 105, Carbon Dioxide Level 35H, Calcium Level 8.6L, Aspartate Amino Transf (AST/SGOT) 18, Alanine Aminotransferase (ALT/SGPT) 17, Alkaline Phosphatase 157H, Total Bilirubin 1.0, Total Protein 6.7, Albumin 2.4L, Albumin/Globulin Ratio 0.56L CBC/BMP Laboratory Tests 02/10/17 05:05 Red Blood Count 3.80 L, Mean Corpuscular Volume 98.7 H, Mean Corpuscular Hemoglobin 29.2, Mean Corpuscular Hemoglobin Concent 29.6 L, Red Cell Distribution Width 15.0 H, Neutrophils (%) (Auto) 82.0 H, Lymphocytes (%) (Auto ) 8.3 L, Monocytes (%) (Auto) 8.1 H, Eosinophils (%) (Auto) 0.2, Basophils (%) ( Auto) 0.2, Neutrophils # (Auto) 8.0 H, Lymphocytes # (Auto) 0.8 L, Monocytes # ( Auto) 0.8, Eosinophils # (Auto) 0.0, Basophils # (Auto) 0.0, Calcium Level 8.6 L , Aspartate Amino Transf (AST/SGOT) 18, Alanine Aminotransferase (ALT/SGPT) 17, Alkaline Phosphatase 157 H, Total Bilirubin 1.0, Total Protein 6.7, Albumin 2.4 L Vikram Mallory RPA-C Feb 10, 2017 09:36
--- NOTE | 2017-02-10 13:40 | IPN ---
DATE: 02/10/2017 Devon is much less responsive than he was yesterday when I saw him in the emergency room. He is less responsive to family too. Apparently, he was almost unresponsive earlier today when the family was present, but he is waking up a bit now. On exam, he opens his eyes to verbal stimulation. He knows where he is. Says he is at "[facility] He does know that there are family members present. With the altered mental status, I will get a stat blood gas, BMP and an ammonia level. The case has been communicated with Dr. Britton who plans to see him and will be ordering a paracentesis. I am concerned about spontaneous bacterial peritonitis and will ask Dr. Britton to address this concern. I have reduced the dose of Levemir because I think his by mouth intake will be reduced. The patient has DO NOT RESUSCITATE status. He also looks dry to me. I am stopping his IV Lasix. Will continue his spironolactone for now, but that might need to be addressed if his by mouth intake does not improve. I note his renal function is climbing. Poor prognosis discussed with family members and they understand and accept this.
[2017-02-10 14:01] LABS: ABG BASE EXCESS 2.2 (-2.0-2.0); ABG HCO3 33.5 MEQ/L (22.0-26.0); ABG PARTIAL PRESSURE O2 91.5 mmHg (75.0-100.0); ABG STANDARD HCO3 26.4 MEQ/L (22.0-26.0); ABG TOTAL CO2 36.5 MEQ/L (23.0-31.0)
[2017-02-10 14:06] LABS: ABG pH (ARTERIAL) 7.152 UNITS (7.350-7.450)
[2017-02-10] MEDS ORDERED: ATROPINE SULFATE 1% OP SOLN 2 ML BTL SL PRN (14:30)
[2017-02-10 14:41] LABS: ALBUMIN 2.5 GM/DL (3.2-5.2); ALBUMIN/GLOBULIN RATIO 0.61 (1.00-1.93); CALCIUM LEVEL 8.6 MG/DL (8.8-10.2); CREATININE FOR GFR 2.05 MG/DL (0.70-1.30); GLOMERULAR FILTRATION RATE 33.9 (>42); POTASSIUM SERUM 5.1 MEQ/L (3.5-5.1); TOTAL PROTEIN 6.6 GM/DL (6.4-8.2)
--- NOTE | 2017-02-10 14:51 | IPN ---
DATE: 02/10/2017 Devon continues to deteriorate rapidly. Stat blood gas returned showing pH 7.15, PCO2 of 98, PO2 of 91. 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 His creatinine, which is 1.3 at baseline was 1.7 on admission and now it is 1.9. There is no sign of vascular overload by examination. Chest x-ray on admission did not show any sign of congestive heart failure (CHF). I spoke with his Tiffanie. He had previously expressed wishes for comfort measures and certainly if it got to the circumstances of such as this, he does not want intubation, noninvasive ventilation, feeding tubes, or long-term feeding. She would like him to have comfort measures, so we will put comfort measures only orders in and his care at this point will be palliative.
[2017-02-10] MEDS: LATANOPROST 0.005% OPHTH SOLN 2.5 ML OU SCH (20:35)
[2017-02-10] MEDS: MORPHINE 2 MG/ML 1ML SYRINGE IV PRN (20:36)
[2017-02-10] MEDS ORDERED: LEVEMIR (INSULIN DETEMIR) 1 UNITS/0.01ML SC SCH (21:00)
[2017-02-11] MEDS: MORPHINE 2 MG/ML 1ML SYRINGE IV PRN ×2 (02:35→04:46)
[2017-02-11] MEDS: LORazepam 2 MG/ML VIAL (J2060) IV PRN ×2 (02:52→05:30)
--- NOTE | 2017-02-11 10:42 | DSES ---
DATE OF ADMISSION: 02/08/2017 DATE OF DISCHARGE: 02/11/2017 PRIMARY CARE PROVIDER (PCP): Dr. Donavan Reynolds ATTENDING PHYSICIAN: Dr. Obey Phillips HISTORY OF PRESENT ILLNESS: Devon Holloway is a 76-year-old male patient of Dr. Reynolds who was admitted with congestive heart failure decompensated, hepatic cirrhosis and ascites. The patient was placed on IV Lasix and spironolactone. His ascites was reaccumulating and Dr. Britton was contacted for consideration of therapeutic tap, which the patient has had in the past. During the course of his hospitalization, he was progressively worsening and becoming less responsive. Dr. Phillips spoke with the family about the patient's overall poor prognosis and his had stated that the patient had previously expressed wishes for comfort measures and therefore family elected for comfort measures and the patient on 02/11/2017. DISCHARGE DIAGNOSES: Acute hepatic encephalopathy. Acute kidney injury/acute renal failure. Hyperammonemia. Diastolic congestive heart failure. Ascites. Hepatic cirrhosis. Diabetes mellitus type 2. Hypertension. Thrombocytopenia. Anemia. Edited 02/12/2017 [facility] 1015 MTDD
[2017-02-13] MEDS ORDERED: VITAMIN D 50,000 UNITS CAPSULE (ERGOCALCIFEROL 1.25MG) PO SCH (09:00)
[2017-02-18 12:53] LABS: IMMATURE PLATELET FRACTION % 15.4 % (0.0-10.9)
== END 2017-02-11 08:02 | disposition expired | DRG 432 ==
LOC: M ED 15:10 → M ED INP 18:59 → M PCU 02-09 15:23 → M MSPAV 02-10 16:18
PROVIDERS: ADMIT Family Medicine; ATTEND Family Medicine
DX: K70.31 Alcoholic cirrhosis of liver with ascites (principal); K76.7 Hepatorenal syndrome; K72.01 Acute and subacute hepatic failure with coma; I50.31 Acute diastolic (congestive) heart failure; E72.20 Disorder of urea cycle metabolism, unspecified; N17.9 Acute kidney failure, unspecified; Z66 Do not resuscitate; E88.09 Other disorders of plasma-protein metabolism, not elsewhere classified; E11.9 Type 2 diabetes mellitus without complications; I11.9 Hypertensive heart disease without heart failure; D69.6 Thrombocytopenia, unspecified; D64.9 Anemia, unspecified; Z51.5 Encounter for palliative care